=== PATIENT | female | born 1960 | race American Indian/Alaskan Native ===

== ENCOUNTER → 2024-09-13 15:28 | Outpatient (CLI) | payer MEDICARE, OTHER, MEDICAID, SELFPAY ==
--- NOTE | 2024-09-13 15:33 | DI.CT.S_ITS ---
PROCEDURE: CT ANGIO HEAD INDICATIONS: Dysarthria TECHNIQUE: Precontrast 4.5 mm thick angled axial sections acquired from the foramen magnum to the vertex. After the administration of intravenous contrast, 1 mm thick sections acquired through the [place] of [place]. Postcontrast 4.5 mm thick sections then re-acquired from the foramen magnum to the vertex. 10 mm thick vzzqhlj-wbfvhdjka-kajotqwjgd (MIP) reformats were acquired of the central intracranial vasculature. For radiation dose reduction, the following was used: automated exposure control, adjustment of mA and/or kV according to patient size. COMPARISON: None. FINDINGS: Image quality: Diagnostic. Anterior circulation: Intracranial internal carotid arteries are normal in size and flow. The flow within the paired anterior cerebral arteries is normal and symmetric. The flow within the middle cerebral arteries is normal and symmetric. The anterior communicating artery is seen. No aneurysms are seen. Posterior circulation: Left vertebral artery dominance. Visualized portions of the vertebral arteries demonstrate normal caliber, and join to form a normal appearing basilar artery. Flow within the posterior cerebral arteries is normal and symmetric. No aneurysms are seen. CSF spaces: Ventricles are normal in size and shape. Basal cisterns are patent. No extra-axial fluid collections. Brain: No midline shift. No intracranial bleeds or masses. Montez-white matter interface appears intact. Skull and face: Calvarium and facial bones appear intact, without suspicious lesions. Sinuses: Visualized sinuses and mastoids are clear. IMPRESSION: No significant intracranial arterial abnormality is seen. Dictated by: Farzana Cedeno M.D. on 09/13/2024 at 16:20 Approved by: Farzana Cedeno M.D. on 09/13/2024 at 16:25
== END ==
PROVIDERS: PCP Nurse Practitioner Family; Referring Provider Nurse Practitioner Family; Visit Provider Nurse Practitioner Family
DX: R47.1 Dysarthria and anarthria (principal)
CPT/HCPCS: 70496; Q9967

== ENCOUNTER → 2024-09-23 12:12 | Outpatient (CLI) | payer MEDICARE, OTHER, MEDICAID, SELFPAY ==
--- NOTE | 2024-09-23 12:13 | DI.ECHO.S_ITS ---
[facility]+ [facility] : : [id number] : : [place] : : [id number] : : Phone: [phone] Echocardiogram Report + + :Name: JOSSUE ASHTON Study Date: 09/23/2024 Height: 62 in : :[facility] ReadingLocation: Weight: 175 lb : : Gender: Female BSA: 1.8 m2 : :: 1960 Age: 64 yrs BP: 123/63 mmHg: :Reason For Study: MURMUR : :Ordering Physician: TAM, : :ISAAC Performed By: Byron Monreal : :Referring: ISAAC TURCIOS : + + Interpretation Summary The left ventricle is normal in size. Left ventricular systolic function appears normal without focal wall motion abnormalities. The ejection fraction is estimated to be 55-60%. Diastolic parameters suggest a relaxation abnormality of the left ventricle, consistent with probable normal filling pressures. The right ventricle is normal in size and function. The right ventricular systolic pressure is estimated to be at least 27 mmHg based on an estimated right atrial pressure of 3 mm Hg. The left atrium is mildly dilated. There is mild mitral regurgitation. There is no other significant valvular heart disease. The aortic root is normal size. Procedure: A two-dimensional transthoracic echocardiogram with color flow and Doppler was performed. The study quality was technically good. There is no prior echocardiogram noted for this patient. The patient was in normal sinus rhythm during the exam. Left Ventricle: The left ventricle is normal in size. There is normal left ventricular wall thickness. There is no ventricular septal defect visualized. Left ventricular systolic function appears normal without focal wall motion abnormalities. The ejection fraction is estimated to be 55-60%. Diastolic parameters suggest a relaxation abnormality of the left ventricle, consistent with probable normal filling pressures. Right Ventricle: The right ventricle is normal in size and function. Atria: The left atrium is mildly dilated. Right atrial size is normal. There is no Doppler evidence for an atrial septal defect. Mitral Valve: The mitral valve leaflets appear normal. There is no evidence of stenosis, fluttering, or prolapse. There is mild mitral regurgitation. Aortic Valve: The aortic valve is trileaflet. The aortic valve opens well. There is trace aortic regurgitation. Tricuspid Valve: The tricuspid valve leaflets are thin and pliable. There is mild tricuspid regurgitation. The right ventricular systolic pressure is estimated to be at least 27 mmHg based on an estimated right atrial pressure of 3 mm Hg. Pulmonic Valve: The pulmonic valve leaflets are thin and pliable; valve motion is normal. There is no pulmonic valvular regurgitation. There is no other significant valvular heart disease. Great Vessels: The aortic root is normal size. The dimensions of the ascending aorta are normal. The pulmonary artery is normal size. The IVC is of normal diameter and collapses greater than 50% with a sniff. This suggests a low right atrial pressure of 3 mm Hg. Pericardium/ Pleura There is no pericardial effusion. There is no pleural effusion. MMode/2D Measurements & Calculations LVIDd: 4.1 cm LVOT diam: 1.8 cm LVIDs: 2.9 cm Ao root diam: 2.9 cm FS: 30.8 % asc Aorta Diam: 3.4 cm EPSS: 0.49 cm Ao Arch Diam (Prox Trans): 1.6 cm IVSd: 0.93 cm LVPWd: 0.94 cm LV tuttle. diameter/BSA (cm/m^2): 2.3 LV sys. diameter/BSA (cm/m^2): 1.6 LA A2 area: 20.4 cm2 RA long axis: 4.1 cm LA A4 area: 21.3 cm2 RA area: 12.2 cm2 LA length (vol): 5.3 cm RA vol: 30.9 ml LA vol: 69.9 ml RA : 17.1 ml/m2 LA vol index: 38.7 ml/m2 IVC diam: 1.2 cm RVD1 (basal): 3.8 cm RVD2 (mid): 2.6 cm TAPSE: 2.2 cm Doppler Measurements & Calculations Ao V2 max: 193.7 cm/sec LVOT Max Wilber: 131.6 cm/sec Ao V2 mean: 134.3 cm/sec LV V1 max P.9 mmHg Ao max P.0 mmHg LV V1 VTI: 30.6 cm Ao mean P.8 mmHg ISHAN(I,D): 1.9 cm2 Ao V2 VTI: 42.4 cm ISHAN(V,D): 1.8 cm2 sev ratio: 0.72 ISHAN indexed to BSA (cm^2/m^2): 1.0 MV E max wilber: 68.5 cm/sec TR max wilber: 244.1 cm/sec MV A max wilber: 106.3 cm/sec TR max P.8 mmHg MV E/A: 0.64 PA V2 max: 85.6 cm/sec Med Peak E' Wilber: 5.2 cm/sec PA V2 mean: 58.9 cm/sec E/E' med: 13.3 PA mean P.6 mmHg Lat Peak E' Wilber: 5.4 cm/sec PA pr(Accel): 34.5 mmHg E/E' lat: 12.6 E/e' average: 12.9 MV dec time: 0.23 sec SV(LVOT): 80.3 ml Reading Physician:01:[id number] PM
== END ==
PROVIDERS: PCP Nurse Practitioner Family; Referring Provider Nurse Practitioner Family; Visit Provider Nurse Practitioner Family
DX: I08.1 Rheumatic disorders of both mitral and tricuspid valves (principal); R01.1 Cardiac murmur, unspecified; R53.82 Chronic fatigue, unspecified; R06.09 Other forms of dyspnea
CPT/HCPCS: 93306